=== PATIENT | female | born 1995 | race African-American/Black ===

== ENCOUNTER 2021-12-14 08:31 | Emergency (ER) | payer BC, MEDICAID, SELFPAY ==
[2021-12-14 08:35] VITALS: BP 142/92; PULSE 106; RESP 20; TEMP 36.9; O2SAT 100
[2021-12-14 08:58] LABS: Appearance Urine Slightly Cloudy (Clear); Bilirubin Urine 1+ (Negative); Blood Urine 1+ (Negative); Color Urine Yellow (Yellow); Glucose Urine UA Negative (Negative); Ketones Urine Negative (Negative); Leukocyte Esterase Ur Trace LEU/UL (Negative); Nitrate Urine Negative (Negative); Protein Urine 1+ mg/dL (Negative); Specific Grav Ur >= 1.030 (1.001-1.035); Urobilinogen Urine 0.2 mg/dL (<2.0); pH Urine 5.5 (5.0-9.0)
[2021-12-14 09:00] LABS: Basophils Percent Auto 0.2 % (0.2-1.2); Eosinophils Absolute Auto 0.1 K/mm3 (0-0.3); Eosinophils Percent Auto 0.7 % (0-4.4); Hematocrit 41.7 % (37.0-47.0); Hemoglobin 13.3 g/dL (12.0-15.0); Immature Granulocyte Absolute 0.03 K/mm3 (0.00-0.031); Immature Granulocyte Percent A 0.3 % (0-0.5); Lymphocytes Percent Auto 10.4 % (18.3-44.2); Mean Corpuscular HGB Conc 31.9 g/dl (32-36); Mean Corpuscular Hemoglobin 31.1 pg (26-34); Mean Corpuscular Volume 97.4 fl (80-100); Mean Platelet Volume 9.5 fl (7.4-10.4); Monocytes Absolute Auto 0.5 K/mm3 (0.1-0.6); Monocytes Percent Auto 6.1 % (2.6-8.5); Neutrophils Absolute Auto 7.1 K/mm3 (1.3-6.7); Neutrophils Percent Auto 82.3 % (45.5-73.1); Platelet Count Result 302 k/mm3 (150-375); Red Blood Count 4.28 M/mm3 (4.2-5.4); Red Cell Distribution Width 14.1 % (11.5-14.5); White Blood Count 8.7 K/mm3 (4.5-10.0)
[2021-12-14 09:01] LABS: Bacteria Urine Trace /hpf; Mucus Urine Moderate /lpf; Squamous Epithelial Cell Urine Many /hpf (Few); WBC Urine 16-20 /hpf
[2021-12-14 09:04] LABS: Add Urine Microscopic? YES
[2021-12-14 09:12] LABS: Alanine Aminotransferase 28 U/L (6-35); Albumin Level 4.7 g/dL (3.5-5.1); Alkaline Phosphatase 122 U/L (38-126); Anion Gap 11 mmol/L (8-16); Aspartate Amino Transferase 28 U/L (14-36); Bilirubin,Total 0.3 mg/dL (0.2-1.3); Blood Urea Nitrogen 15 mg/dL (7-17); Calcium 9.1 mg/dL (8.4-10.2); Carbon Dioxide 20 mmol/L (22-30); Chloride 110 mmol/L (98-107); Estimated CRCL calculation 130 ml/min; Estimated Glomerular Filt Rate > 60; Glucose 118 mg/dL (65-110); Lipase 66 U/L (23-300); Potassium 4.2 mmol/L (3.4-5.0); Sodium 141 mmol/L (137-145)
--- NOTE | 2021-12-14 11:22 | PC.NURSE ---
Pt report given to Yamileth MEDINA.
[2021-12-14 11:32] VITALS: BP 119/69; PULSE 82
[2021-12-14 11:33] VITALS: BP 120/69; PULSE 86
[2021-12-14 11:36] VITALS: BP 124/77; PULSE 102
[2021-12-14] MEDS: SODIUM CHLORIDE 0.9% IV 1,000 ML 999 ML IV CONT (11:38)
[2021-12-14] MEDS: FAMOTIDINE 20 MG/2 ML VIAL IV PUSH (11:39)
[2021-12-14] MEDS: KETOROLAC 30 MG/ML VIAL (*BKC) IV PUSH (11:39)
[2021-12-14] MEDS: ONDANSETRON INJ 4 MG/2 ML VIAL IV PUSH (11:40)
--- NOTE | 2021-12-14 12:08 | ED.GENADULT ---
HPI - General Adult General Chief complaint: Nausea/Vomiting/Diarrhea Stated complaint: N/V/D Time Seen by Provider: 12/14/21 08:49 Source: RN notes reviewed History of Present Illness HPI narrative: Patient presents emergency room from home for nausea vomiting diarrhea. Patient states that symptoms began this morning. States she has had several episodes of diarrhea as well as nausea vomiting she states associate with abdominal pain described as cramping diffusely she denies any fevers or chills chest pain shortness of breath or any other symptoms states she is not taking medication for the symptoms Related Data Allergies Allergy/AdvReac Type Severity Reaction Status Date / Time No Known Allergies Allergy Verified 12/14/21 11:38 Review of Systems Review of Systems: Gen.: Denies fevers or chills ENT: Denies congestion Respiratory: Denies shortness of breath or cough CV: Denies chest pain or palpitations GI: See HPI Musculoskeletal: Denies back pain or muscle pain Neuro: Denies numbness, tingling, weakness or focal weakness Skin: Denies rash Except as documented, all other systems reviewed and negative Exam Narrative: APPEARANCE: No acute distress, nontoxic, resting in bed EYES: EOMI HEENT: Normocephalic, atraumatic, OMM RESPIRATORY: No respiratory distress Clear to auscultation bilaterally with no rhonchi wheezing or rales. CARDIOVASCULAR: Regular rate and rhythm without murmurs rubs or gallops. ABDOMINAL: Soft, nontender, nondistended, no rebound or guarding MUSCULOSKELETAl: Moves all extremities. No clubbing, cyanosis or edema. NEURO: Awake and alert. Following commands, speech normal, no focal deficits SKIN:: Warm, dry. No rashes lesions or abrasions PSYCHIATRIC: Normal affect/mood, Course Course Emergency Course: Initial exam of the patient does have some abdominal cramping the abdomen is soft nontender Patient states that they are feeling much better at this time. Repeat abdominal exam shows the patient's abdomen to be soft and nontender. Discussed with patient results of workup and diagnosis. Discussed need for follow-up with primary care physician, reasons to return to the emergency department in proper use of medication. Patient understands and agrees to current treatment plan Vital Signs Vital signs: Vital Signs Temperature 98.5 F 12/14/21 08:35 Pulse Rate 106 H 12/14/21 08:35 Respiratory Rate 20 12/14/21 08:35 Blood Pressure 142/92 H 12/14/21 08:35 Pulse Oximetry 100 12/14/21 08:35 Oxygen Delivery Room Air 12/14/21 08:35 Temperature 98.5 F 12/14/21 08:35 Pulse Rate 102 H 12/14/21 11:36 Respiratory Rate 20 12/14/21 08:35 Blood Pressure 124/77 12/14/21 11:36 Pulse Oximetry 100 12/14/21 08:35 Oxygen Delivery Room Air 12/14/21 08:35 Medical Decision Making MDM Narrative Medical decision making narrative: Patient's abdomen is soft without significant pain or signs of surgical abdomen on serial exams. Lab and x-ray evaluations are reviewed and patient is felt to be a reasonable candidate for outpatient management. Patient was instructed as to limitations of x-ray and laboratory evaluation and encouraged to return to ED or primary physician for repeat exam in 12 hours if continued or worsening pain Vital Signs Vital Signs: Vital Signs Temperature 98.5 F 12/14/21 08:35 Pulse Rate 106 H 12/14/21 08:35 Respiratory Rate 20 12/14/21 08:35 Blood Pressure 142/92 H 12/14/21 08:35 Pulse Oximetry 100 12/14/21 08:35 Oxygen Delivery Room Air 12/14/21 08:35 Temperature 98.5 F 12/14/21 08:35 Pulse Rate 102 H 12/14/21 11:36 Respiratory Rate 20 12/14/21 08:35 Blood Pressure 124/77 12/14/21 11:36 Pulse Oximetry 100 12/14/21 08:35 Oxygen Delivery Room Air 12/14/21 08:35 Lab Data Result diagrams: 12/14/21 08:44 12/14/21 08:44 Labs: Lab Results 12/14/21 12/14/21 12/14/21 Range/Units 08:44 08:44 08:49
[2021-12-14] MEDS: NITROFURANTOIN MONOHYD MACROCR 100 MG CAP PO (12:17)
[2021-12-14 12:19] VITALS: BP 149/83; PULSE 77; RESP 16; TEMP 36.2; O2SAT 100
== END 2021-12-14 12:52 | disposition home or self-care (01) ==
PROVIDERS: Emergency Provider Emergency Medicine
DX: N39.0 Urinary tract infection, site not specified (principal); R11.2 Nausea with vomiting, unspecified; R19.7 Diarrhea, unspecified
CPT/HCPCS: 36415; 80053; 81001; 81025; 83690; 85025; 87077; 87086; 87186; 96361; 96374; 96375; 99284; A9270; J1885; J2405; J7030